=== PATIENT | female | born 1975 | race Caucasian/White ===

== ENCOUNTER 2016-06-09 16:49 | Inpatient (IN) | payer BC ==
[~2016-06-09] VITALS: Ht 167.6 cm; Wt 85.3 kg
[~2016-06-09 16:49] MED LIST: PERC5TAB12 PO; PREN0.01 PO
--- NOTE | 2016-06-18 14:08 | MH ---
cc: CARLY CHAMBERS M.D. DATE OF ADMISSION: 06/20/2016 1977 REASON FOR ADMISSION Admission for repeat section at term. HISTORY OF PRESENT ILLNESS The patient is a 40-year-old female, 2, para 1, estimated date of confinement June 26, 2016 based on first trimester ultrasound November 27, 2015, baby measured 9 weeks and 5 days. The patient's last menstrual period was 09/24/2015. OBSTETRICAL HISTORY The patient had previous section at term at 41 weeks elected for repeat section at term. The patient's course has been uncomplicated. The patient's group B strep status is negative. She underwent cell free DNA testing which was normal demonstrating a normal karyotype. The patient's blood type is A+. ALLERGIES The patient has no known drug allergies. MEDICATION She currently takes no medications except vitamins. PAST MEDICAL HISTORY She has had a history of anxiety disorder treated in the past. SOCIAL HISTORY Denies any alcohol, tobacco or drug use. PAST SURGICAL HISTORY As stated above. Low transverse section July of 2013. PHYSICAL EXAMINATION GENERAL: The patient is a well-appearing, well-nourished female in no acute distress. VITAL SIGNS: Stable. Blood pressures 110/80, pulse and respiratory rate are normal. She weighs 188 pounds and she is 5 feet 7 inches tall. HEENT: Shows no adenopathy, thyromegaly, neck is supple. Full range of motion. LUNGS: Clear in all hanna. CARDIAC: Regular rate and rhythm. ABDOMEN: Abdomen is gravid, full-term, fundal height is 40 weeks. EXTREMITIES: Symmetrical, full range of motion. No cyanosis, clubbing or edema. ASSESSMENT The patient is 39 weeks and 1 day intrauterine gestation for repeat low transverse section. Group B strep status is negative. MD RONI Figueroa/SHEELA /1:34 PM /1:47 PM
[2016-06-20] MEDS: LACTATED RINGER'S 1000 ML INJ 1,000 ML IV SCH ×2 (06:00→06:50)
[2016-06-20 06:15] VITALS: BP 121/98; PULSE 109
[2016-06-20 06:21] LABS: AUTOMATED NEUTROPHIL # 4.9 TH/MM3 (1.8-7.7); BASOPHIL % 0.5 % (0.0-2.0); EOSINOPHIL # 0.1 TH/MM3 (0-0.4); EOSINOPHIL % 1.9 % (0.0-4.0); HEMATOCRIT 30.4 % (35.0-46.0); HEMO FLAGS DIFF FINAL; LYMPH % 23.3 % (9.0-44.0); LYMPHOCYTE # 1.7 TH/MM3 (1.0-4.8); MEAN CELL VOLUME 74.3 FL (80.0-100.0); MEAN CORPUSCULAR HEMOGLOBIN 25.3 PG (27.0-34.0); MONO % 6.8 % (0.0-8.0); NEUT % 67.5 % (16.0-70.0); PLATELET COUNT 205 TH/MM3 (150-450); RED BLOOD COUNT 4.08 MIL/MM3 (4.00-5.30); RED CELL DISTRIBUTION WIDTH 15.1 % (11.6-17.2); WHITE BLOOD COUNT 7.2 TH/MM3 (4.0-11.0)
[2016-06-20 06:25] LABS: BACTERIA, URINE OCC /hpf; BLOOD, URINE NEG (NEG); COMMENT (UR) CULT NOT INDICATED; CULTURE IF INDICATED CULT NOT INDICATED; GLUCOSE,URINE NEG (NEG); KETONE, URINE TRACE mg/dL (NEG); MUCUS URINE MOD /lpf (OCC); NITRITE,URINE NEG (NEG); RENAL EPITHELIAL CELLS <1 /hpf; SQUAMOUS EPITHELIAL CELL URINE 2 /hpf (0-5); TRANSITIONAL EPI CELLS, URINE <1 /hpf; URINE COLOR YELLOW (YELLW/STRAW)
[2016-06-20] MEDS ORDERED: ceFAZolin 2 GM PREMIX 50 ML IV SCH (06:30)
[2016-06-20] MEDS ORDERED: OXYTOCIN 10 UNIT/ML AMP ONE (06:59)
[2016-06-20] MEDS ORDERED: CITRIC ACID-SODIUM CITRATE LIQ 30 ML UDC ONE (07:01)
[2016-06-20] MEDS ORDERED: SODIUM CHLORIDE 0.9% FLUSH 5 ML FLUSH IV PRN (07:45)
[2016-06-20] MEDS ORDERED: oxyCODONE/ACETAMINOPHEN 5 MG/325 MG TAB PO PRN (07:45)
[2016-06-20] MEDS ORDERED: ACETAMINOPHEN 1000 MG/100 ML VIAL IV ONE ×2 (07:45→09:21)
[2016-06-20] MEDS ORDERED: OXYTOCIN 30 UNITS-500ML PREMIX 500 ML IV ONE (07:45)
[2016-06-20] MEDS ORDERED: SIMETHICONE 80 MG CHEWABLE TAB PO PRN (07:45)
[2016-06-20] MEDS ORDERED: DOCUSATE SODIUM 50 MG/SENNA 8.6 MG TAB PO PRN (07:45)
[2016-06-20] MEDS ORDERED: ONDANSETRON HCL 4 MG/2 ML VIAL IV PUSH PRN (07:45)
[2016-06-20] MEDS: SODIUM CHLORIDE 0.9% FLUSH 5 ML FLUSH IV SCH ×2 (09:00→22:01)
--- NOTE | 2016-06-20 09:02 | PD.OB.DELI ---
Procedure Note Section Procedure Performed by William Mcdaniel Procedure: Repeat Low Transverse Sec (AND BTL) Indication for delivery: Desired elective repeat Informed consent obtained: For anesthesia, For procedure Confirmed correct: Patient, Procedure, Site, Time-out taken Anesthesia: Spinal Medication prior to procedure: As documented in eMAR Monitoring during procedure: Blood pressure monitoring, teletypesetter monitor, doppler, Pulse oximetry Urinary catheter: Inserted using sterile technique, To dependent drainage Sterile preparation: Duraprep Position: Supine with wedge to right side, Supine with safety belt applied Operative Features Skin Incision: Pfannenstiel Uterine Incision: Low transverse w/knife / scissors Membranes Ruptured: Artificially, Appearance of fluid (CLEAR) Presentation: Occiput anterior Delivery of : Assisted (KIWI VACUUM X1 PULL) : Male One Minute : 8 Five Minute : 9 Weight: 7# 13 oz Status of : Viable, Cord blood Placenta delivered: Intact Medications: Antibiotics, Oxytocin Estimated blood loss: 650 Procedure tolerated: Well Maternal Condition: Stable Condition: Stable William Mcdaniel MD Jun 20, 2016 09:02
[2016-06-20] MEDS ORDERED: MIDAZOLAM HCL 5 MG/5 ML VIAL ONE (09:12)
[2016-06-20] MEDS ORDERED: MORPHINE SULFATE PF 5 MG/10 ML VIAL ONE (09:13)
[2016-06-20] MEDS ORDERED: LACTATED RINGER'S 1,000 ML BAG IV ONE (09:37)
[2016-06-20] MEDS ORDERED: EPIDURAL-DIPHENHYDRAMINE HCL 50 MG/ML VIAL IV PUSH PRN (12:15)
[2016-06-20] MEDS ORDERED: EPIDURAL-DIPHENHYDRAMINE HCL 50 MG CAP PO PRN (12:15)
[2016-06-20] MEDS ORDERED: EPIDURAL-DO NOT ADMINISTER ANTICOAGULANTS XX PRN (12:15)
[2016-06-20] MEDS ORDERED: EPIDURAL-NO SYSTEMIC NARCOTICS XX PRN (12:15)
[2016-06-20] MEDS ORDERED: EPIDURAL-NALOXONE HCL 0.4 MG/ML AMP IV PRN (12:15)
[2016-06-20] MEDS ORDERED: LACTATED RINGER'S 1000 ML INJ 1,000 ML IV SCH (12:35)
[2016-06-20] MEDS ORDERED: OXYTOCIN 30 UNITS-500ML PREMIX 500 ML IV PRN (17:45)
[2016-06-20] MEDS: IBUPROFEN 600 MG TAB PO PRN (22:58)
[2016-06-21] MEDS ORDERED: SENN1TAB PO (01:19)
[2016-06-21] MEDS ORDERED: OXYC1TAB63 PO (01:19)
[2016-06-21] MEDS ORDERED: IBUP-232 PO (01:19)
--- NOTE | 2016-06-21 01:19 | HHI.OB ---
Subjective Post Operative Day: 1 Remarks s/p scheduled term CD with Dr. Mcdaniel Objective Vitals/I&O Vital Signs Date Time Temp Pulse Resp B/P Pulse Ox O2 Delivery O2 Flow Rate FiO2 06/20/16 06:15 109 121/98 Result Diagram: 06/20/16 0600 Objective Remarks GENERAL: Well-nourished, well-developed patient. CARDIOVASCULAR: Regular rate and rhythm without murmurs, gallops, or rubs. RESPIRATORY: Breath sounds equal bilaterally. No accessory muscle use. ABDOMEN/GI: Abdomen soft, non-tender, bowel sounds present. Incision: bandage in place, Clean, dry and intact. Fundus: Firm, non-tender at umbilicus. GENITOURINARY: Light bleeding. EXTREMITIES: No cyanosis or edema, non-tender, without signs of DVT. Medications and IVs Current Medications Medications (Trade) Dose Ordered Sig/Santos Route Start Time Stop Time Status Last Admin Lactated Ringer's 1,000 ml @ 150 mls/hr Q6H40M IV 06/20/16 06:30 06/20/16 06:50 (Lr 1000 ml Inj) 1,000 ml @ 100 mls/hr Q10H IV 06/20/16 12:35 06/21/16 08:34 06/20/16 14:30 (NS Flush) 2 ml BID IV 06/20/16 09:00 06/20/16 22:01 (NS Flush) 2 ml UNSCH PRN IV 06/20/16 07:45 (Mylicon Chew) 80 mg QID PRN PO 06/20/16 07:45 (Motrin) 600 mg Q6H PRN PO 06/20/16 07:45 06/20/16 22:58 (Percocet 5-325 Mg) 1 tab Q4H PRN PO 06/20/16 07:45 (Percocet 5-325 Mg) 2 tab Q4H PRN PO 06/20/16 07:45 (Raquel-Colace) 2 tab Q12H PRN PO 06/20/16 07:45 (M-M-R Ii Inj) 0.5 ml ONCE ONCE SQ 06/21/16 16:00 06/21/16 16:01 (Boostrix Inj) 0.5 ml ONCE ONCE IM 06/21/16 16:00 06/21/16 16:01 (Zofran Inj) 4 mg Q6H PRN IV PUSH 06/20/16 07:45 Miscellaneous Information NO SYSTEMIC NARCOTICS TO BE GIVEN FO... UNSCH PRN XX 06/20/16 12:15 06/21/16 12:14 (Narcan Inj) 0.4 mg UNSCH PRN IV 06/20/16 12:15 06/21/16 12:14 (Benadryl Inj) 25 mg Q6H PRN IV PUSH 06/20/16 12:15 06/21/16 12:14 06/20/16 12:19 (Benadryl) 50 mg Q6H PRN PO 06/20/16 12:15 06/21/16 12:14 Miscellaneous Information ALL NURSING DEPARTMENTS UNSCH PRN XX 06/20/16 12:15 06/21/16 12:14 Assessment/Plan Problem List: (1) delivery delivered Assessment and Plan POD#1 ambulate, shower, remove bandage today supportive care plan infant circ 06/22/16 anticipate d/c to home 06/22 or 06/23 pt aware if d/c 06/22 will need to come to office for staple removal Thursday Discharge Planning routine Inez Colvin MD Jun 21, 2016 01:18
--- NOTE | 2016-06-21 01:20 | HHI.DCPOC ---
Discharge Care Plan Diagnosis: (1) delivery delivered Your Health Problems Are: delivery Report Symptoms to Your Doctor -Temperate above 100.5 degrees -Redness, of incision or excessive or foul smelling drainage -Unusual pain or calf pain -Increased vaginal bleeding -Painful or difficulty urinating -Feelings of extreme sadness or anxiety after 2 weeks Goals to Promote Your Health * To prevent worsening of your condition and complications * To maintain your health at the optimal level Directions to Meet Your Goals Take your medications as prescribed Follow your dietary instruction Follow activity as directed Ensure plenty of rest for recovery Drink fluids for hydration Keep your appointments as scheduled Take your immunizations and boosters as scheduled If your symptoms worsen call your PCP, if no PCP go to Urgent Care Center or Emergency Room Smoking is Dangerous to Your Health. Avoid second hand smoke Call the 24-hour crisis hotline for domestic abuse at Inez Colvin MD Jun 21, 2016 01:20
[2016-06-21] MEDS: IBUPROFEN 600 MG TAB PO PRN ×3 (05:03→17:35)
[2016-06-21 09:31] LABS: AUTOMATED NEUTROPHIL # 6.8 TH/MM3 (1.8-7.7); BASOPHIL % 0.5 % (0.0-2.0); EOSINOPHIL # 0.1 TH/MM3 (0-0.4); HEMATOCRIT 25.5 % (35.0-46.0); HEMO FLAGS DIFF FINAL; LYMPH % 21.1 % (9.0-44.0); MEAN CELL VOLUME 75.9 FL (80.0-100.0); MEAN CORPUSCULAR HEMOGLOBIN 25.5 PG (27.0-34.0); MEAN CORPUSCULAR HGB CONC 33.6 % (32.0-36.0); MONO % 5.7 % (0.0-8.0); NEUT % 71.7 % (16.0-70.0); PLATELET COUNT 186 TH/MM3 (150-450); RED BLOOD COUNT 3.36 MIL/MM3 (4.00-5.30); RED CELL DISTRIBUTION WIDTH 14.4 % (11.6-17.2); WHITE BLOOD COUNT 9.5 TH/MM3 (4.0-11.0)
[2016-06-21] MEDS: oxyCODONE/ACETAMINOPHEN 5 MG/325 MG TAB PO PRN ×2 (11:58→17:35)
[2016-06-21] MEDS ORDERED: MEASLES, MUMPS, RUBELLA VACCINE 0.5 ML VIAL SQ ONE (16:00)
[2016-06-21] MEDS ORDERED: DIPHTH/TETANUS/ACEL PERTUSSIS (BOOSTER) 0.5 ML VIAL/PFS IM ONE (16:00)
[2016-06-21 19:49] VITALS: BP 133/82; PULSE 70; RESP 18
[2016-06-21 19:51] VITALS: TEMP 97.3
[2016-06-21] MEDS: SODIUM CHLORIDE 0.9% FLUSH 5 ML FLUSH IV SCH (21:00)
[2016-06-21] MEDS: LACTATED RINGER'S 1000 ML INJ 1,000 ML IV SCH (22:30)
[2016-06-22] MEDS: IBUPROFEN 600 MG TAB PO PRN ×3 (00:12→11:55)
[2016-06-22 08:37] VITALS: BP 142/89; PULSE 81; RESP 17; TEMP 98.1
--- NOTE | 2016-06-22 09:43 | HHI.OB ---
Subjective Post Operative Day: 2 Remarks s/p RLTCD Objective Vitals/I&O Vital Signs Date Time Temp Pulse Resp B/P Pulse Ox O2 Delivery O2 Flow Rate FiO2 06/22/16 08:37 98.1 81 17 142/89 06/21/16 19:51 97.3 06/21/16 19:49 70 18 133/82 Result Diagram: 06/21/16 0805 Objective Remarks GENERAL: Well-nourished, well-developed patient. CARDIOVASCULAR: Regular rate and rhythm without murmurs, gallops, or rubs. RESPIRATORY: Breath sounds equal bilaterally. No accessory muscle use. ABDOMEN/GI: Abdomen soft, non-tender, bowel sounds present. Incision: Clean, dry and intact. maurice in place Fundus: Firm, non-tender at umbilicus. GENITOURINARY: Light bleeding. EXTREMITIES: No cyanosis or edema, non-tender, without signs of DVT. Medications and IVs Current Medications Medications (Trade) Dose Ordered Sig/Santos Route Start Time Stop Time Status Last Admin (Lr 1000 ml Inj) 1,000 ml @ 150 mls/hr Q6H40M IV 06/20/16 06:30 06/20/16 06:50 (NS Flush) 2 ml BID IV 06/20/16 09:00 06/20/16 22:01 (NS Flush) 2 ml UNSCH PRN IV 06/20/16 07:45 (Mylicon Chew) 80 mg QID PRN PO 06/20/16 07:45 (Motrin) 600 mg Q6H PRN PO 06/20/16 07:45 06/22/16 06:15 (Percocet 5-325 Mg) 1 tab Q4H PRN PO 06/20/16 07:45 06/22/16 00:11 (Percocet 5-325 Mg) 2 tab Q4H PRN PO 06/20/16 07:45 06/21/16 17:35 (Raquel-Colace) 2 tab Q12H PRN PO 06/20/16 07:45 06/22/16 00:11 (Zofran Inj) 4 mg Q6H PRN IV PUSH 06/20/16 07:45 Assessment/Plan Problem List: (1) delivery delivered Assessment and Plan POD#2 doing well BP's inconsistent and pt very stressed re: separation anxiety from 3yo daughter ; desires d/c to home today; denies YANES, vision changes, RUQ pain, edema; no si/ sx d/c to home today office f/u for staple removal tmrw s/p circ by me this AM Discharge Planning routine Inez Colvin MD Jun 22, 2016 09:43
[2016-06-22 09:55] VITALS: BP 124/78; PULSE 95
--- NOTE | 2016-06-23 11:05 | MP ---
cc: CARLY CHAMBERS M.D. DATE OF SURGERY: 06/20/2016 PREOPERATIVE DIAGNOSIS Term intrauterine , previous section, elective repeat section. PROCEDURE 1. Repeat low transverse section. 2. Bilateral tubal ligation using modified [place] technique for elective sterilization. POSTOPERATIVE DIAGNOSIS Term intrauterine , previous section, elective repeat section. SURGEON Jonas ANESTHESIA Spinal. ESTIMATED BLOOD LOSS 650 cc. DRAINS [place] to gravity. OPERATIVE FINDINGS Male infant delivered weighing 7 pounds 13 ounces, Apgars 8 at one minute and 9 at give. INDICATIONS FOR PROCEDURE Previous section for elective repeat as well as elective sterilization by tubal ligation. PROPHYLAXIS The patient received Ancef two grams prophylactically. PROCEDURE DESCRIPTION The patient is taken to the operating room in stable condition, underwent spinal anesthetic without complication. She is carefully positioned on the operating table with sequentials placed on lower extremities for VTE prophylaxis. She is prepped and draped. A Car[place] catheter is inserted by sterile technique. A timeout is then conducted and agreed by all present in the room. After the patient is adequately draped, the patient is tested for anesthetic level. She had excellent pain control. The previous Pfannenstiel scar is utilized using a #10 blade taking the incision down through the skin, subcutaneous layer to the fascia, identifying the fascia and making a transverse incision identifying the rectus and then the rectus from the fascia by a combination of sharp technique and electrocautery. The muscle bellies were opened in the middle. They were opened identifying the peritoneum easily and then extended the incision. A transverse incision is made in the lower uterine segment. The fluid is clear upon entry. The incision is extended and the is delivered with the aid of a vacuum extractor with one pull. No complications incurred. The infant is delivered in total with good tone and cry. The cord is doubly clamped and cut and the infant is taken to the isolette by the nursery staff present. The cord sample is obtained for typing. The placenta is removed intact with trailing membranes. The uterus is then exteriorized and explored. There is no retained tissue. The closure of the transverse incision on the uterus is done in a double layer. The first layer is a running locking suture of 0 Monocryl followed by a second imbricating suture of 0 Monocryl. The fallopian tubes are elevated. The mesentery is opened and using the Bovie to cauterize any active bleeding. A suture of 2-0 plain is used proximally and distally to secure the tube. The mid isthmic portion and the distal ampullary portion of the tube were excised and sent after being labeled appropriately right and left. Good hemostasis is noted. The uterus is then returned to its normal anatomic position. The pelvis is irrigated. There is no active bleeding. All free blood and clot is removed. Full count is made and correct. The peritoneum is then closed with a running suture of 2-0 Monocryl. Muscle bellies are re-approximated with interrupted mattress suture of 2-0 Monocryl. The fascia is closed with 0 Vicryl. The subcutaneous space is re-approximated closing the space with 2-0 Monocryl running. Ami are used to reapproximate the skin edge. Dressing is applied. Final count is correct. The patient is stable. is in the nursery in good condition. MD RONI Figueroa/NIK /1:12 PM /10:53 AM
== END 2016-06-22 12:05 | disposition home or self-care (01) | DRG 766 ==
LOC: H2EB 06-20 05:35 → UNDODISIN 06-20 10:32 → H1EA 06-20 10:47
PROVIDERS: ADMIT Obstetrics & Gynecology; ATTEND Obstetrics & Gynecology
PROC: 10D00Z1 Extraction of Products of Conception, Low, Open Approach (ICD-10-PCS; principal; 2016-06-20)
PROC: 0UB70ZZ Excision of Bilateral Fallopian Tubes, Open Approach (ICD-10-PCS; 2016-06-20)
DX: O34.211 Maternal care for low transverse scar from previous cesarean delivery (principal); O99.344 Other mental disorders complicating childbirth; O09.529 Supervision of elderly multigravida, unspecified trimester; F41.9 Anxiety disorder, unspecified; Z3A.39 39 weeks gestation of pregnancy; Z30.2 Encounter for sterilization; Z37.0 Single live birth
CPT/HCPCS: 59025; 81001; 85025; 86850; 86900; 86901; 88302; J0131; J0690; J1200; J2250; J2274; J2590; J7120